=== PATIENT | female | born 1970 | race Caucasian/White ===

== ENCOUNTER 2017-08-17 17:36 | Emergency (ER) | payer OTHER ==
[2017-08-17 17:42] VITALS: BP 126/69
--- NOTE | 2017-08-17 18:36 | ER Document Report ---
ED General - General Chief Complaint: Sore Throat Stated Complaint: COUGH,SORE THROAT Time Seen by Provider: 08/17/17 18:18 Mode of Arrival: Ambulatory Information source: Patient, Relative TRAVEL OUTSIDE OF THE [place] IN LAST 30 DAYS: No - HPI Onset: This morning Onset/Duration: Gradual, Persistent Quality of pain: Achy, Throbbing Severity: Moderate Pain Level: 2 Associated symptoms: Rhinnorhea, Sore throat Exacerbated by: Other - Swallowing Relieved by: Denies Similar symptoms previously: Yes Recently seen / treated by doctor: No - Related Data Allergies/Adverse Reactions: erythromycin base Allergy (Verified 08/17/17 17:40) Past Medical History - Social History Smoking Status: Never Smoker Cigarette use (# per day): No Frequency of alcohol use: None Drug Abuse: None Lives with: Family Family History: None Renal/ Medical History: Denies: Hx Peritoneal Dialysis Review of Systems - Review of Systems Constitutional: No symptoms reported EENT: No symptoms reported, See HPI, Throat pain, Difficulty swallowing Cardiovascular: No symptoms reported Respiratory: No symptoms reported Gastrointestinal: No symptoms reported Genitourinary: No symptoms reported Female Genitourinary: No symptoms reported Musculoskeletal: No symptoms reported Skin: No symptoms reported Hematologic/Lymphatic: No symptoms reported Neurological/Psychological: No symptoms reported Physical Exam - Vital signs Vitals: Temp Pulse Resp BP Pulse Ox 97.9 F 101 H 18 126/69 H 97 08/17/17 17:41 08/17/17 17:41 08/17/17 17:41 08/17/17 17:41 08/17/17 17:41 - General General appearance: Other - Uncomfortable appearing - HEENT Head: Normocephalic, Atraumatic Ears: Normal External canal: Normal Tympanic membrane: Normal Sinus: Normal Nasal: Normal. No: Bloody discharge, Bernardo deformity, Purulent discharge, Septal hematoma Mouth/Lips: Normal Pharynx: Erythema, Exudate, Other - Examination patient's oral cavity shows moderate amount of erythema with bilateral tonsillar enlargement faint faint bilateral exudate minimal whitish padgett in color. No: Normal, Peritonsillar abscess, Post nasal drainage, Retropharyngeal abscess Neck: Anterior cervical chain, Lymphadenopathy. No: Posterior cervical chain, Brudzinski, Carotid bruit, Neck mass, Subcutaneous emphysema - Respiratory Respiratory status: No respiratory distress Chest status: Nontender Breath sounds: Normal. No: Rales, Rhonchi, Stridor, Wheezing Chest palpation: Normal - Cardiovascular Rhythm: Tachycardia Heart sounds: Normal auscultation Murmur: Yes - Neurological Neuro grossly intact: Yes Cognition: Normal Orientation: AAOx4 Cong Coma Scale Eye Opening: Spontaneous [place] Coma Scale Verbal: Oriented Cong Coma Scale Motor: Obeys Commands Cong Coma Scale Total: 15 Speech: Normal Course - Vital Signs Vital signs: Temp Pulse Resp BP Pulse Ox 97.9 F 101 H 18 126/69 H 97 08/17/17 17:41 08/17/17 17:41 08/17/17 17:41 08/17/17 17:41 08/17/17 17:41 Discharge - Discharge Condition: Stable Disposition: HOME, SELF-CARE Instructions: Sore Throat ([facility]) Additional Instructions: Tonsillitis Tonsillitis is infection of the tonsils. Symptoms include sore throat, difficulty swallowing, fever and aches, and tender lumps under the angle of the jaw. Tonsillitis can be caused by bacteria or viruses. Viral tonsillitis must get better on its own. Antibiotics don't help. The doctor may test for mononucleosis if symptoms last many days. We can only treat the symptoms. Bacterial tonsillitis is treated with antibiotics. It may take a few days before improvement occurs. It's important to take all the antibiotics. Take acetaminophen or ibuprofen for pain and fever. Sip frequent clear liquids, or use popsicles or ice chips. Anesthetic sprays or lozenges may help a little (the pain of tonsillitis is deep, and isn't helped much by numbing the surface). Make sure the air in the room is not too dry. Avoid using decongestants or antihistamines. Tonsillectomy may be necessary if you have several episodes of tonsillitis within a couple of years, or if there are complications from your tonsillitis. It's usually not needed. Call the doctor if there is no improvement in two days, or if you have difficulty breathing, increasing throat pain, high fever, rash, or frequent vomiting. Home and rest. Medications prescribed. Use warm salt water swishes and gargles 3-4 times a day. You may also use Chloraseptic spray to help with the discomfort. Also popsicles and cold fluids will help reduce inflammation of the tonsils. Monitor the condition regularly if you have an increase in temp or swelling of the tonsils or shortness of breath hard time holding her secretions and return to ER for a recheck. Prescriptions: Amox Tr/Potassium Clavulanate [Augmentin 875-125 Tablet] 1 tab PO BID 10 Days # 20 tablet Prednisone [Sterapred Ds] 10 mg PO DAILY 6 Days #1 [id number] Forms: Elevated Blood Pressure Referrals: JET ALEMAN MD [Primary Care Provider] - Follow up as needed
== END 2017-08-17 18:50 | disposition home or self-care (01) ==
LOC: ER 17:36
DX: J02.9 Acute pharyngitis, unspecified (principal); Z88.3 Allergy status to other anti-infective agents
CPT/HCPCS: 99282